=== PATIENT | female | born 1960 | race Two or more races ===

== ENCOUNTER 2017-09-05 16:32 | Emergency (ER) | payer OTHER ==
[~2017-09-05] VITALS: Ht 157.5 cm; Wt 86.6 kg
--- NOTE | 2017-09-05 16:38 | NUR ---
BBRA 89 FROM MD OFFICE FOR WEAKNESS; PT STATES HAS NOT TAKEN INSULIN X 10 DAYS. BS IN FIELD 375. PLACED ON MONITOR. AWAITING MD ORDER
--- NOTE | 2017-09-05 16:59 | NUR ---
EKG IN PROGRESS
[2017-09-05] MEDS ORDERED: ONDANSETRON HCL/PF 4 MG/2 ML VIAL IVP ONE (17:00)
[2017-09-05] MEDS ORDERED: INSULIN REGULAR, HUMAN 100 UNIT/ML 10 ML VIAL IV ONE (17:00)
[2017-09-05] MEDS ORDERED: IV NS 0.9% 1,000 ML BAG IV ONE ×2 (17:00)
[2017-09-05] MEDS ORDERED: ONDANSETRON HCL/PF 4 MG/2 ML VIAL ONE (17:11)
[2017-09-05] MEDS ORDERED: INSULIN REGULAR, HUMAN 100 UNIT/ML 10 ML VIAL ONE (17:11)
[2017-09-05 17:12] LABS: BASOPHILS # (AUTO) 0.2 /CMM (0.0-0.2); BASOPHILS % (AUTO) 2.2 % (0.0-2.0); EOSINOPHILS # (AUTO) 0.1 /CMM (0.0-0.7); HEMATOCRIT 49 % (33-45); HEMOGLOBIN 16.1 g/dL (11.5-14.8); LYMPHOCYTES # (AUTO) 1.5 /CMM (0.8-4.8); LYMPHOCYTES % (AUTO) 21.7 % (20.0-44.0); MEAN CORPUSCULAR HEMOGLOBIN 31 PG (26.0-33.0); MEAN CORPUSCULAR HGB CONC 33 g/dl (31.0-36.0); MEAN CORPUSCULAR VOLUME 94 fL (82-100); MONOCYTES # (AUTO) 0.6 /CMM (0.1-1.30); NEUTROPHILS # (AUTO) 4.6 /CMM (1.8-8.9); NEUTROPHILS % (AUTO) 67.1 % (43.0-81.0); PLATELET COUNT (AUTO) 226 /CMM (150-450); RDW COEFFICIENT OF VARIATION 12.3 (11.5-15.0); RED BLOOD CELL COUNT(AUTO) 5.16 MIL/uL (4.0-5.2)
[2017-09-05 17:38] LABS: INR 0.96 (0.87-1.13)
[2017-09-05 17:40] LABS: ALANINE AMINOTRANSFERASE 87 U/L (12-78); ALBUMIN 3.8 g/dL (3.4-5.0); ALKALINE PHOSPHATASE 99 U/L (46-116); ASPARTATE AMINOTRANSFERASE 44 U/L (15-37); BILIRUBIN,DIRECT 0.1 mg/dL (0.0-0.2); BILIRUBIN,TOTAL 0.7 mg/dL (0.2-1.0); CALCIUM, SERUM 9.9 mg/dL (8.5-10.1); CARBON DIOXIDE 16 mmol/L (21-32); CHLORIDE 95 mmol/L (98-107); CREATININE 1.4 mg/dL (0.6-1.3); POTASSIUM 4.2 mmol/L (3.5-5.1); SODIUM SERUM 129 mmol/L (136-145); TOTAL PROTEIN, SERUM 7.6 g/dL (6.4-8.2); UREA NITROGEN, BLOOD 17 mg/dL (7-18)
[2017-09-05 17:41] LABS: GLUCOSE 426 mg/dL (74-106)
[2017-09-05 17:42] LABS: TROPONIN I < 0.017 ng/mL (0.00-0.056)
[2017-09-05 18:07] LABS: APPEARANCE,URINE Slightly Cloudy (CLEAR); BILIRUBIN,URINE LARGE (NEGATIVE); BLOOD, URINE Small Ery/uL (NEGATIVE); COLOR,URINE Yellow (YELLOW); KETONES,URINE >=160 (NEGATIVE); LEUKOCYTE ESTERASE ,URINE Negative (NEGATIVE); NITRITE, URINE Negative (NEGATIVE); PROTEIN,URINE >=300 mg/dl (NEGATIVE); UGLUCOSE 500 MG/DL mg/dL (NEGATIVE); UROBILINOGEN,URINE 0.2 EU/dL (0.2)
[2017-09-05 18:28] LABS: BACTERIA,URINE Few /HPF (None Seen); MUCUS,URINE Few /LPF (None Seen); SQUAMOUS EPITHELIAL CELL,UR Moderate /HPF (None Seen); URINE AMORPHOUS URATE Few /HPF (None Seen)
--- NOTE | 2017-09-05 19:08 | NUR ---
GAVE REPORT TO VICTORINO FOR KEYUR
--- NOTE | 2017-09-05 19:57 | NUR ---
IV removed. Catheter intact and site benign. Pressure and 4x4 applied to site. No bleeding noted.Patient discharged to home in stable condition. Written and verbal after care instructions given. Patient verbalizes understanding of instruction. PT'S DAUGHTER IS AT THE BEDSIDE AND IS DRIVING PT HOME. VSS. PT AMBULATED OUT WITH A STEADY GAIT.
[2017-09-05 19:58] VITALS: BP 163/87
== END 2017-09-05 19:55 | disposition home or self-care (01) ==
LOC: ER 16:36
DX: E11.65 Type 2 diabetes mellitus with hyperglycemia (principal); E78.00 Pure hypercholesterolemia, unspecified; I10 Essential (primary) hypertension; E86.0 Dehydration; Z79.4 Long term (current) use of insulin; Z98.890 Other specified postprocedural states
CPT/HCPCS: 36415; 70450; 71010; 80048; 80076; 81001; 82962; 84484; 85025; 85730; 93005; 96361; 96372; 96374; 99285; A4606; J1815; J2405; J7030 ×2; Z7610; 81000-TC